=== PATIENT | male | born 1975 | race Caucasian/White ===

== ENCOUNTER → 2020-03-27 10:32 | Outpatient (CLI) | payer OTHER, SELFPAY ==
[2020-03-28 11:30] LABS: Covid-19 Nasal PCR Sendout P&C NEGATIVE
== END ==
PROVIDERS: PCP Internal Medicine Adolescent Medicine; Visit Provider Internal Medicine Adolescent Medicine
DX: Z03.818 Encounter for observation for suspected exposure to other biological agents ruled out (principal)
CPT/HCPCS: U0004

== ENCOUNTER → 2020-04-08 16:10 | Outpatient (CLI) | payer OTHER, SELFPAY ==
[2020-04-10 11:07] LABS: Covid-19 Nasal PCR Sendout P&C POSITIVE
== END ==
PROVIDERS: PCP Nurse Practitioner Family; Visit Provider Nurse Practitioner Family
DX: Z20.822 Contact with and (suspected) exposure to COVID-19 (principal); U07.1 COVID-19
CPT/HCPCS: U0004

== ENCOUNTER → 2020-12-18 09:14 | Outpatient (CLI) | payer OTHER, SELFPAY | PROVIDERS: PCP Internal Medicine Adolescent Medicine; Visit Provider Nurse Practitioner | DX: Z20.822 Contact with and (suspected) exposure to COVID-19 (principal) | CPT/HCPCS: C9803; U0003; U0005 ==

== ENCOUNTER → 2021-01-16 12:45 | Outpatient (CLI) | payer OTHER, SELFPAY | PROVIDERS: PCP Internal Medicine Adolescent Medicine; Visit Provider Nurse Practitioner | DX: Z20.822 Contact with and (suspected) exposure to COVID-19 (principal) | CPT/HCPCS: C9803; U0003; U0005 ==

== ENCOUNTER 2022-03-07 12:40 | Emergency (ER) | payer OTHER, SELFPAY ==
[2022-03-07 14:10] VITALS: BP 131/88; PULSE 91; RESP 18; TEMP 36.8; O2SAT 99; BMI 30.8
[2022-03-07 14:24] LABS: UTC Strep Screen (Rapid) Positive (Negative)
--- NOTE | 2022-03-07 14:44 | EXP.UTC ---
Discharge Plan Disposition Patient Disposition: Home, Self-Care Condition: Good Prescriptions Prescriptions: New azithromycin [azithromycin] 250 mg tablet 250 mg PO DIRECTED Qty: 6 0RF Rx Instructions: Take two (2) tablets on day #1, then one (1) tablet day #2 thru #5 No Action ibuprofen 800 MG tablet 800 mg PO Q8HP PRN (Reason: Moderate Pain) Qty: 21 0RF methocarbamol 500 MG tablet 500 mg PO TID Qty: 21 0RF prednisone 20 MG tablet 20 mg PO BID Qty: 10 0RF pnenvmobkzgueex-aozyksney-MP 473 ML syrup 5 - 10 ml PO Q4HP PRN (Reason: Cough) 10 Days Qty: 240 0RF Referrals Follow up/Referrals: Milan Corado MD [Primary Care Provider] - See instructions Activity Restrictions/Add. Instructions Additional Instructions/Restrictions: Start antibiotics today be sure to take it as ordered with the full length of time although you should start feeling better in 24-48 hours. Change toothbrush and toothpaste 24-48 hours after starting antibiotics Tylenol or Motrin as needed for fever or pain Encourage fluids, water, Gatorade, Powerade, try cold fluids, popsicles, ice cream will make it feel better You are contagious for 24 hours. Avoid kissing anyone, no eating or drinking after anyone. You are contagious. Follow-up the ER for new or worsening symptoms or no noticeable improvement over the next 24-48 hours. Follow-up with PCP this week. Clinical Impressions Clinical Impression: Strep sore throat Instructions Patient Instructions: DI for Strep Throat [facility] [place] HPI General Stated complaint: fever, sore throat, cough, strep exposure Mode of Arrival: Ambulatory Source of Information: Patient Limitations: No Limitations Time Seen by Provider: 03/07/22 14:44 Description of Symptoms (Recalled from Triage Doc. by RN): PATIENT C/O SORE THROAT SINCE YESTERDAY. EXPOSED TO STREP HEENT Symptoms (Recalled from RN notes): Yes Resp Symptoms (Recalled from RN notes): No Skin Symptoms (Recalled from RN notes): No MS Symptoms (Recalled from RN notes): No Functional Status (Recalled from RN notes): WNL History of Present Illness Provider Complaint: 46 yr old male presents for sore throat. son has strep Related Data Previous Rx's Medication Instructions Recorded ibuprofen 800 mg tablet 800 mg PO Q8HP PRN Moderate Pain 02/12/18 #21 tabs methocarbamol 500 mg tablet 500 mg PO TID #21 tabs 02/12/18 txcayzabqutbtps-hbmreeyubcwhepq-XC 5 - 10 ml PO Q4HP PRN Cough 10 03/17/19 2 mg-30 mg-10 mg/5 mL oral syrup days ##240 prednisone 20 mg tablet 20 mg PO BID #10 tabs 03/17/19 azithromycin 250 mg tablet 250 mg PO DIRECTED #6 tabs 03/07/22 Allergies Allergy/AdvReac Type Severity Reaction Status Date / Time No Known Allergies Allergy Unverified 03/15/17 14:31 Worker's Comp Is this a Worker's Comp case?: No [facility] Disclaimer: The information contained in this section may have been updated after the patient was seen, as this information can be updated by other users. Medical History , [employer]) No significant past medical history Social History , [employer]) Smoking Status: Never smoker alcohol intake: never current occupational status: other Travel in the last 8 weeks: None ROS Obtained: Yes All systems reviewed & no additional complaints except as documented Constitutional Constitutional: Reports system reviewed and no additional complaints, except as documented and Reports as per HPI Eyes Eyes: Reports system reviewed and no additional complaints, except as documented ENT Ears, Nose, Mouth, and Throat: Reports system reviewed and no additional complaints, except as documented and Reports sore throat Cardiovascular Cardiovascular: Reports system reviewed and no additional complaints, except as documented Respiratory Respiratory: Reports syste
[2022-03-07 15:05] VITALS: BP 131/88; PULSE 91; RESP 18; TEMP 36.8; O2SAT 99
== END 2022-03-07 15:10 | disposition home or self-care (01) ==
PROVIDERS: Emergency Provider Nurse Practitioner Family; PCP Internal Medicine Adolescent Medicine
DX: J02.0 Streptococcal pharyngitis (principal); B95.0 Streptococcus, group A, as the cause of diseases classified elsewhere; R50.9 Fever, unspecified; R05.9 Cough, unspecified; Z79.52 Long term (current) use of systemic steroids; Z79.899 Other long term (current) drug therapy
CPT/HCPCS: 87880; 99213; G0463

== ENCOUNTER 2024-03-17 09:07 | Emergency (ER) | payer OTHER, SELFPAY ==
--- NOTE | 2024-03-17 09:15 | ECG_ITS ---
APPROVED REPORT Exam: Resting ECG HR:125 bpm ECG Measurements Heart Rate 125 AXES QRSd 84 QRS 15 QT 273 T 29 QTc 347 Conclusion ATRIAL FIBRILLATION WITH RAPID VENTRICULAR RESPONSE ABNORMAL RHYTHM ECG Electronically signed by : AYAKA CRENSHAW, 03/17/2024 15:25:09
[2024-03-17 09:16] VITALS: BP 127/82; PULSE 72; RESP 18; TEMP 36.6; O2SAT 96; BMI 29.9
--- NOTE | 2024-03-17 09:28 | XR_ITS ---
PROCEDURE INFORMATION: Exam: XR Chest Exam date and time: 03/17/2024 9:52 AM Age: 48 years old Clinical indication: Tachypnea; Additional info: Rapid hr TECHNIQUE: Imaging protocol: Radiologic exam of the chest. Views: 1 view. COMPARISON: CR CXR2 XR chest AP 02/12/2018 5:00 PM FINDINGS: Lungs: Unremarkable. No consolidation. Resolution of the left basilar opacity Pleural spaces: Unremarkable. No pleural effusion. No pneumothorax. Heart/Mediastinum: Unremarkable. No cardiomegaly. Bones/joints: Unremarkable. IMPRESSION: No acute findings.
--- NOTE | 2024-03-17 09:30 | HMH.EDGENADL ---
Discharge Plan Disposition Patient Disposition: Home, Self-Care Prescriptions Prescriptions: New diltiazem HCl 180 mg capsule,extended release 24hr 180 mg PO DAILY Qty: 2 0RF No Action meloxicam 15 mg tablet 15 mg PO DAILY Patient Comments: TAKE 1 TABLET BY MOUTH ONCE DAILY Referrals Follow up/Referrals: Milan Corado MD [Primary Care Provider] - See instructions Activity Restrictions/Add. Instructions Additional Instructions/Restrictions: At this time it was felt you are safe to be discharged home. If new or worsening symptoms please do not hesitate to return the emergency department. Tomorrow please take 20 mg of your Eliquis and 180 mg diltiazem. Please present to cardiology clinic Tuesday and told him Dr. De Los Santos wanted to evaluated that morning. Clinical Impressions Clinical Impression: Atrial fibrillation with rapid ventricular response Print Language Print Language: French Discharge ED Provider: Martín Morin General Adult HPI General Chief complaint: Arrhythmia/Palpitations Stated complaint: heart fluttering, high HR, Time Seen by Provider: 03/17/24 09:10 Mode of Arrival: Ambulatory Source of Information: Patient Limitations: No Limitations Description of Symptoms (Recalled from ER Triage Doc. by RN): pt states that during rest apple watch notified increased heart rate all through the night, pt states that he can feel the increased heart rate, no hx, no home meds no chest pains or pressure. History of Present Illness HPI narrative: Patient is a 48-year-old male with no chronic comorbidities who presents emergency department for evaluation of heart fluttering. Onset was acute, occurring throughout the middle of the night. His watch was showing his heart rate anywhere between 160 and 70 bpm ultimately he presents here for continued evaluation. Patient denies chest pain, he has never had anything similar to this happen before. No other acute complaints at this time. Related Data Home Medications ?Medication ?Instructions ?Recorded ?Confirmed meloxicam 15 mg tablet 15 mg PO DAILY 03/17/24 03/17/24 Previous Rx's ?Medication ?Instructions ?Recorded diltiazem HCl 180 mg 180 mg PO DAILY atrial 03/17/24 capsule,extended release 24 hr fibrillation #2 caps Allergies Allergy/AdvReac Type Severity Reaction Status Date / Time No Known Allergies Allergy Unverified 03/15/17 14:31 [facility] Disclaimer: The information contained in this section may have been updated after the patient was seen, as this information can be updated by other users. Medical History , [employer]) No significant past medical history Social History (Updated 03/07/22 @ 15:01 by Joseph Jackson ([facility]), [employer]) Smoking Status: Never smoker alcohol intake: never current occupational status: other Travel in the last 8 weeks: None Have you lived/traveled outside [place] in past 30 days?: No Contact w/someone who lives/traveled outside US past 30 days?: No Exposure to someone with infectious disease in past 14 days?: No Do you have a fever (greater than 100.4 F or 38 C)?: No Have you tested positive for COVID-19: No Exposed to someone with COVID-19 in past 14 days?: No Do you have a sore throat?: No Do you have a cough?: No Do you have any weakness?: No Do you have any diarrhea?: No Are you experiencing any unusual bleeding?: No Do you have any muscle aches/pain?: No Do you have any abdominal pain?: No Are you experiencing loss of taste or smell?: No Other Medical History Have you received the Flu Vaccine for this season: Yes ROS Obtained: Yes Systems reviewed as appropriate & no additional complaints except as documented Physical Exam General General appearance: alert and in no apparent distress Head Head exam: atraumatic and normocephalic Eye Eye exam: Present PERRL ENT ENT exam: Present mucous membranes moist Neck Neck exam: Present normal inspection Chest Chest inspection: Present normal inspection and symmetric chest wall rise Respiratory Respiratory exam: Present normal lung sounds bilaterally; Absent respiratory distress Cardiovascular Cardiovascular exam: Present tachycardia and irregular rhythm Abdominal Exam Abdominal exam: Present soft; Absent tenderness Extremities Exam Extremities exam: Present normal inspection Neurological Exam Neurological exam: Present alert Psychiatric Psychiatric exam: Present normal affect Skin Skin exam: Present warm and dry Medical Decision Making Medical Records Screening: Per USPSTF and CDC recommendations, given the prevalence of disease in our region, it is our hospital?s policy to screen for HIV and viral Hepatitis for all patients aged 18 and over and those with ongoing risk factors. Brain Inquiry Pt receiving controlled substance: No Vital Signs: 03/17/24 09:16 03/17/24 09:46 Temperature 97.8 F Temperature Source Oral Pulse Rate 79 Pulse Rate [Right Radial] 72 Respiratory Rate 18 14 Blood Pressure 123/86 Blood Pressure [Right Arm] 127/82 Blood Pressure Mean [Right Arm] 97 02 Sat by Pulse Oximetry 96 97 Oxygen Delivery Method Room Air Lab Data Lab Results 03/17/24 09:35: WBC 6.4, RBC 5.29, Hgb 16.1, Hct 46.7, MCV 88.3, MCH 30.4, MCHC 34.5, RDW 12.7, Plt Count 213, MPV 8.8, Neut % (Auto) 55.8, Lymph % (Auto) 33.2, [place] % (Auto) 8.2, Eos % (Auto) 2.0, Baso % (Auto) 0.6, Neut # (Auto) 3.6, Lymph # (Auto) 2.1, [place] # (Auto) 0.5, Eos # (Auto) 0.1, Baso # (Auto) 0.0, D-Dimer 0.59 H, Sodium 140, Potassium 3.7, Chloride 108 H, Carbon Dioxide 29, Anion Gap 6.7, BUN 16, Creatinine 0.90, Estimated Creat Clear 156, Estimated GFR 90, Est GFR ( Amer) 109, Glucose 100, Calcium 8.9, Magnesium 1.8, Total Bilirubin 0.9, AST 77 H, ALT 40, Alkaline Phosphatase 57, NT-Pro-B Natriuret Pep 378 H, Total Protein 6.7, Albumin 4.0, Globulin 2.7, Albumin/Globulin Ratio 1.5, TSH 1.77, Free T4 1.11 03/17/24 09:35 03/17/24 09:35 Orders (Tests/Meds): ED MEDICATIONS Generic Name Dose Route Start Last Admin Trade Name Freq PRN Reason Stop Dose Admin Diltiazem HCl 100 mg/ Sodium 100 mls @ 5 mls/hr 03/17/24 09:45 03/17/24 10:32 Chloride IV 04/16/24 09:44 0 mg/hr .Q20H BLAISE 0 mls/hr Titration Protocol 5 MG/HR Discontinued Medications Generic Name Dose Route Start Last Admin Trade Name Freq PRN Reason Stop Dose Admin Aspirin 324 mg 03/17/24 09:28 03/17/24 09:47 Aspirin 81mg Chewable Tablet PO 03/17/24 09:29 324 mg ONCE ONE Administration Diltiazem HCl 20 mg 03/17/24 09:28 03/17/24 09:45 Diltiazem 25mg/5ml Vial IV 03/17/24 09:29 20 mg ONCE ONE Administration Diltiazem HCl 180 mg 03/17/24 10:27 03/17/24 10:36 Diltiazem Hcl 180mg Cap.Er.24h PO 03/17/24 10:28 180 mg DAILY ONE Administration Rivaroxaban 20 mg 03/17/24 10:27 03/17/24 10:36 Rivaroxaban 10mg Tablet PO 03/17/24 10:28 20 mg ONCE ONE Administration ORDERS Category Date Time Status CXR --portable [XR chest portable] Stat Exams 03/17/24 09:28 Completed POCUS Point of Care (ER Only) Stat Exams 03/17/24 09:30 Ordered BNP [NT Pro Brain Natriuretic Pep.] Stat Lab 03/17/24 09:35 Completed CBC w/Auto Diff [Complete Blood Count Auto Diff] Stat Lab 03/17/24 09:35 Completed CMP [Comprehensive Metabolic Panel] Stat Lab 03/17/24 09:35 Completed D-Dimer Stat Lab 03/17/24 09:35 Completed Free T4 (Free Thyroxine) Stat Lab 03/17/24 09:35 Completed HIV (1&2) Antibody Rapid Stat Lab 03/17/24 09:35 Received Hep C Ab with Reflex to RNA Stat Lab 03/17/24 09:35 Received MG [Magnesium] Stat Lab 03/17/24 09:35 Completed TSH [Thyroid Stimulating Hormone] Stat Lab 03/17/24 09:35 Completed ECG Data Tracing #1: Independently interpreted by me rate is 125 rhythm is irregular axis is normal, no ST elevation in anatomical contiguous leads, QTc 347 Medical Decision Narrative: In summary patient is a 48-year-old male past medical history described above who presents emergency department for evaluation of palpitations. Patient is hemodynamically stable nontoxic-appearing upon arrival, afebrile, tachycardic heart between 120 140 bpm. EKG obtained at bedside shows atrial fibrillation with rapid ventricular response. Differential diagnosis includes primary metabolic abnormality, endocrine abnormality, primary cardiac abnormality, among others. Workup be conducted with hematologic labs, chest x-ray, EKG, troponin, D-dimer. Initial inventions include push dose diltiazem followed by diltiazem drip. Aspirin will be administered at bedside. Initial workup reviewed by me, hematologic labs are nonactionable, no leukocytosis or anemia, pulmonary embolism excluded with years criteria, no concern for aortic dissection based on history given that he does not have chest pain no critical electrolyte abnormality thyroid studies are normal. Upon repeat evaluation patient had robust response to IV diltiazem the case was discussed with cardiology Dr. De Los Santos and given that he is well-appearing will be transition to oral extended release diltiazem and started on Eliquis in the ER. The patient was placed in observation status at 10:30 AM. Medical necessity for observational status with assessment of cardioactive medication effect. The patient was provided serial reevaluations and cardiac monitoring while awaiting results. Upon repeat evaluation patient persistently had sinus rhythm in the 60s to 80s. Given this I feel that patient is appropriate for outpatient management at this time and patient will be discharged with Xarelto take-home pack and diltiazem and will follow-up with cardiology on Tuesday morning. Total time in observation was 53 minutes. Critical Care Critical Care Time Critical Care Time: Yes Attestation: On 03/17/24, the high probability of a clinically significant, sudden or life threatening deterioration of the following system(s) required my full and direct attention, intervention and personal management. The time I documented below is in addition to time spent performing reported procedures but includes the following listed in this critical care notation. Total Time Total Critical Care Time: 45
--- NOTE | 2024-03-17 09:43 | HMH.PHAINT1 ---
Pharmacy Intervention Comments: MEDICATION RECONCILIATION COMPLETED ON PATIENT USING EXTERNAL FILL HISTORY FROM PHARMACY. -RENAN QUINONEZ, MANJULAD
[2024-03-17] MEDS: dilTIAZem 25MG/5ML VIAL 20 MG IV (09:45)
[2024-03-17 09:46] VITALS: BP 123/86; PULSE 79; RESP 14; O2SAT 97
[2024-03-17] MEDS: dilTIAZem HCL 100 MG in 0.9 % SODIUM CHLORIDE 100 ML IV (09:47)
[2024-03-17] MEDS: ASPIRIN 81MG CHEWABLE TABLET 324 MG PO (09:47)
[2024-03-17 09:54] LABS: Hematocrit 46.7 % (42.0-52.0); Hemoglobin 16.1 g/dL (14.1-18.0); Mean Corpuscular HGB Conc 34.5 g/dL (31.8-35.4); Mean Corpuscular Hemoglobin 30.4 pg (27.0-31.2); Mean Corpuscular Volume 88.3 fl (80-94); Red Blood Count 5.29 M/mm3 (4.60-6.20); White Blood Count 6.4 K/mm3 (4.8-10.8)
[2024-03-17 09:55] LABS: Basophils % 0.6 % (0.1-2.0); Eosinophils # 0.1 K/mm3 (0.0-0.4); Lymphocytes # 2.1 K/mm3 (0.7-4.5); Lymphocytes % 33.2 % (10-50); Mean Platelet Volume 8.8 fl (7.4-10.4); Monocytes # 0.5 K/mm3 (0.1-1.0); Monocytes % 8.2 % (1.7-9.3); Neutrophils # 3.6 K/mm3 (1.8-7.8); Neutrophils % 55.8 % (37.0-80.0); Platelet Count 213 K/mm3 (142-424); Red Cell Distribution Width 12.7 % (11.5-17.5)
[2024-03-17 10:04] LABS: Potassium 3.7 mmoL/L (3.5-5.1)
[2024-03-17 10:06] LABS: Alanine Aminotransferase 40 U/L (12-78); Albumin/Globulin Ratio 1.5 (1.1-1.8); Alkaline Phosphatase 57 U/L (38-126); Anion Gap 6.7 mEq/L (5-15); Aspartate Amino Transferase 77 U/L (17-59); Bilirubin,Total 0.9 mg/dl (0.2-1.3); Blood Urea Nitrogen 16 mg/dl (9-20); Calcium 8.9 mg/dl (8.4-10.2); Carbon Dioxide 29 mmol/L (22.0-30.0); Chloride 108 mmol/L (98-107); Creatinine Clearance Estimated 156 mL/min (50-200); Estimated Glomerular Filt Rate 90 ml/min (>60); GFR (African American) 109 ML/MIN (>60); Globulin 2.7 g/dL (1.3-3.2); Glucose 100 mg/dl (74-100); Magnesium 1.8 mg/dl (1.6-2.3); Sodium 140 mmol/L (136-145); Total Protein,Serum 6.7 g/dl (6.3-8.2)
[2024-03-17 10:11] LABS: D-Dimer 0.59 ug/mL (0.0-0.5)
[2024-03-17 10:34] LABS: Free T4 (Free Thyroxine) 1.11 ng/dl (0.78-2.19)
[2024-03-17] MEDS: dilTIAZem HCL 180MG CAP.ER.24H 180 MG PO (10:36)
[2024-03-17] MEDS: RIVAROXABAN 10MG TABLET 20 MG PO (10:36)
[2024-03-17 10:39] LABS: Thyroid Stimulating Hormone 1.77 uIU/mL (0.465-4.68)
[2024-03-17 10:50] LABS: NT Pro Brain Natriuretic Pep. 378 pg/mL (0-125)
[2024-03-17] MEDS: XARELTO 15MG THP 1 PACKET PAK PO (11:31)
[2024-03-17 11:38] VITALS: BP 127/94; PULSE 74; RESP 16; TEMP 36.6
[2024-03-17 13:48] LABS: HIV Combo NEGATIVE (Negative)
[2024-03-19 10:08] LABS: HCV Ab Non Reactive (Non Reactive)
== END 2024-03-17 11:41 | disposition home or self-care (01) ==
PROVIDERS: Emergency Provider Emergency Medicine; PCP Internal Medicine Adolescent Medicine
DX: I48.91 Unspecified atrial fibrillation (principal); R00.2 Palpitations
CPT/HCPCS: 71045; 80050; 80053; 83735; 83880; 84439; 84443; 85025; 85378; 86803; 87389; 93005; 99291

== ENCOUNTER 2024-03-19 11:27 | Outpatient (CLI) | payer OTHER, SELFPAY | END 2024-03-19 23:59 | disposition home or self-care (01) | LOC: RT 11:29 | PROVIDERS: PCP Internal Medicine Adolescent Medicine; Visit Provider Physician Assistant | DX: I48.91 Unspecified atrial fibrillation (principal) | CPT/HCPCS: 93270 ==

== ENCOUNTER 2024-04-16 01:24 | Emergency (ER) | payer OTHER, SELFPAY ==
[2024-04-16] VITALS (9 sets, daily range): BP systolic 122–180; BP diastolic 82–101; PULSE 62–122; RESP 14–24; TEMP 36.8–37.1; O2SAT 95–100; BMI 29.3
--- NOTE | 2024-04-16 01:43 | CT_ITS ---
PROCEDURE INFORMATION: Exam: CTA Chest With Contrast Exam date and time: 04/16/2024 3:30 AM Age: 48 years old Clinical indication: Shortness of breath; Additional info: SOA tachy palpitations TECHNIQUE: Imaging protocol: Computed tomographic angiography of the chest with contrast. Exam focused on the arteries. 3D rendering (Not supervised by radiologist): MIP and/or 3D reconstructed images were created by the technologist. Radiation optimization: All CT scans at this facility use at least one of these dose optimization techniques: automated exposure control; mA and/or kV adjustment per patient size (includes targeted exams where dose is matched to clinical indication); or iterative reconstruction. Contrast material: ISOVUE; Contrast volume: 70 ml; Contrast route: INTRAVENOUS (IV); COMPARISON: CR XR CHEST PORTABLE 03/17/2024 9:52 AM FINDINGS: Pulmonary arteries: Normal. No pulmonary emboli. Aorta: Unremarkable. No aortic aneurysm. No aortic dissection. Lungs: Mild ground-glass opacities bilaterally. Azygos fissure. Pleural spaces: Unremarkable. No pneumothorax. No pleural effusion. Heart: Unremarkable. No cardiomegaly. No pericardial effusion. Lymph nodes: Calcified right hilar and mediastinal lymph nodes. Bones/joints: Unremarkable. No acute fracture. Soft tissues: Unremarkable. IMPRESSION: No pulmonary emboli. Mild bilateral ground-glass opacities, suspicious for pulmonary edema. Evidence of prior granulomatous exposure.
[2024-04-16 01:59] LABS: Hematocrit 47.2 % (42.0-52.0); Hemoglobin 16.4 g/dL (14.1-18.0); White Blood Count 8.8 K/mm3 (4.8-10.8)
[2024-04-16 02:00] LABS: Basophils # 0.1 K/mm3 (0-0.2); Basophils % 0.6 % (0.1-2.0); Eosinophils # 0.2 K/mm3 (0.0-0.4); Eosinophils % 2.6 % (0.1-12.0); Lymphocytes # 4.3 K/mm3 (0.7-4.5); Lymphocytes % 49.1 % (10-50); Mean Corpuscular HGB Conc 34.7 g/dL (31.8-35.4); Mean Corpuscular Hemoglobin 30.9 pg (27.0-31.2); Mean Corpuscular Volume 89.1 fl (80-94); Mean Platelet Volume 9.2 fl (7.4-10.4); Monocytes # 0.7 K/mm3 (0.1-1.0); Monocytes % 8.1 % (1.7-9.3); Neutrophils # 3.5 K/mm3 (1.8-7.8); Neutrophils % 39.4 % (37.0-80.0); Platelet Count 222 K/mm3 (142-424); Red Cell Distribution Width 12.4 % (11.5-17.5)
--- NOTE | 2024-04-16 02:04 | PC.NURSE ---
Patient states he already took aspirin at home
[2024-04-16 02:05] LABS: NT Pro Brain Natriuretic Pep. < 20.0 pg/mL (0-125)
[2024-04-16 02:06] LABS: Albumin Level 4.4 g/dl (3.5-5.0); Chloride 102 mmol/L (98-107); Potassium 3.7 mmoL/L (3.5-5.1); Sodium 141 mmol/L (136-145)
[2024-04-16 02:09] LABS: Alanine Aminotransferase 28 U/L (12-78); Albumin/Globulin Ratio 1.7 (1.1-1.8); Alkaline Phosphatase 68 U/L (38-126); Anion Gap 14.7 mEq/L (5-15); Aspartate Amino Transferase 32 U/L (17-59); Bilirubin,Total 0.3 mg/dl (0.2-1.3); Blood Urea Nitrogen 18 mg/dl (9-20); Calcium 9.6 mg/dl (8.4-10.2); Carbon Dioxide 28 mmol/L (22.0-30.0); Estimated Glomerular Filt Rate 72 ml/min (>60); GFR (African American) 87 ML/MIN (>60); Globulin 2.6 g/dL (1.3-3.2); Glucose 107 mg/dl (74-100)
[2024-04-16 02:10] LABS: Troponin I < 0.01 ng/ml (0.00-0.034)
[2024-04-16 02:11] LABS: Activated Partial Thrombo Time 29.6 seconds (22.8-30.6); INR 0.94 (0.9-1.1); Prothrombin Time 10.4 seconds (10.1-12.5)
[2024-04-16 02:24] LABS: Coronavirus 19, PCR Not Detected (NotDetected); Influenza A, PCR Not Detected (NotDetected); Influenza B, PCR Not Detected (NotDetected)
--- NOTE | 2024-04-16 03:07 | PC.NURSE ---
rounded on patient, no needs at this time. Patient reports no pain at this time.
[2024-04-16] MEDS: 0.9 % SODIUM CHLORIDE 50 ML VIAL IV (03:36)
[2024-04-16] MEDS: SODIUM CHLORIDE 0.9% 10ML SYR (RAD ONLY) 10 ML IV (03:36)
[2024-04-16] MEDS: IOPAMIDOL-370 (76%);100ML BOTTLE 70 ML IV (03:36)
[2024-04-16 04:07] LABS: HIV Combo NEGATIVE (Negative)
[2024-04-16 04:14] LABS: Hepatitis C Ab Qual. W/ RFX NEGATIVE (Negative)
[2024-04-16 05:12] LABS: Troponin I < 0.01 ng/ml (0.00-0.034)
--- NOTE | 2024-04-16 05:37 | [facility].EDCP ---
Discharge Plan Disposition Patient Disposition: Home, Self-Care Condition: Good Prescriptions Prescriptions: No Action omeprazole 20 mg capsule,delayed release(DR/EC) 20 mg PO DAILY Patient Comments: TAKE 1 CAPSULE BY MOUTH EVERY DAY diltiazem HCl 180 mg capsule,extended release 24hr 180 mg PO DAILY Qty: 30 5RF Xarelto 20 mg tablet 20 mg PO DAILY Qty: 30 2RF Rx Instructions: must administer with evening meal meloxicam 15 mg tablet 15 mg PO DAILY PRN Patient Comments: TAKE 1 TABLET BY MOUTH ONCE DAILY Referrals Follow up/Referrals: Milan Corado MD [Primary Care Provider] - See instructions Activity Restrictions/Add. Instructions Additional Instructions/Restrictions: You were evaluated in the ER and are appropriate for discharge at this time. Continue taking your home medications as prescribed. Drink plenty of water. Follow-up with cardiology as scheduled. Return to the ER with new, worsening, or otherwise concerning symptoms. Clinical Impressions Clinical Impression: Palpitations, Atrial fibrillation Print Language Print Language: Welsh Discharge ED Provider: Nickie Brown General Chief Complaint: Chest Pain Stated Complaint: chest pain Time Seen by Provider: 04/16/24 01:42 Mode of Arrival: Ambulatory Source of Information: Patient Limitations: No Limitations Description of Symptoms (Recalled from ER Triage Doc. by RN): Pt presents to ED for chest palpitations. Pt states Dr. Mikel granda w/ [facility]. Pt states his Apple Watch woke him up. Pt states he took ASA prior to arrival. Pt states he has no pain at this time. History of Present Illness HPI narrative: 48-year-old male with known atrial fibrillation presents to the ER for palpitations. Patient reports he is taking his Xarelto and diltiazem as prescribed. He states he felt an episode of palpitations that started around midnight. Patient has been previously instructed to take an extra diltiazem if this happens which he did. He states he felt like he could not catch his breath so he came to the ER for evaluation. Patient also took aspirin prior to arrival. He denies any chest pain or pressure, no numbness, tingling, or weakness. Patient denies any recent illness, no cough, congestion, fever, vomiting, diarrhea, abdominal pain, dizziness, lightheadedness, or other associated symptoms. He states he has not missed any doses of medications, not had any recent medication changes, no alcohol or illicit drug use. Also denies tobacco use. Related Data Home Medications ?Medication ?Instructions ?Recorded ?Confirmed meloxicam 15 mg tablet 15 mg PO DAILY PRN 03/26/24 03/26/24 omeprazole 20 mg capsule,delayed 20 mg PO DAILY 03/26/24 03/26/24 release Previous Rx's ?Medication ?Instructions ?Recorded diltiazem HCl 180 mg 180 mg PO DAILY atrial 03/19/24 capsule,extended release 24 hr fibrillation #30 caps rivaroxaban 20 mg tablet (Xarelto) 20 mg PO DAILY #30 tabs 03/19/24 Allergies Allergy/AdvReac Type Severity Reaction Status Date / Time No Known Allergies Allergy Unverified 03/26/24 08:54 [facility] Disclaimer: The information contained in this section may have been updated after the patient was seen, as this information can be updated by other users. Medical History (Updated 04/16/24 @ 05:30 by Nickie Brown MD) Atrial fibrillation with rapid ventricular response Paroxysmal atrial fibrillation Abnormal electrocardiogram [ECG] [EKG] Family history of coronary artery disease No significant past medical history Social History Smoking Status: Never smoker alcohol intake: never current occupational status: other Travel in the last 8 weeks: None Have you lived/traveled outside [place] in past 30 days?: No Contact w/someone who lives/traveled outside [place] past 30 days?: No Exposure to someone with infectious disease in past 14 days?: No Do you have a fever (greater than 100.4 F or 38 C)?: No Have you tested positive for COVID-19: No Exposed to someone with COVID-19 in past 14 days?: No Do you have a sore throat?: No Do you have a cough?: No Do you have any weakness?: No Do you have any diarrhea?: No Are you experiencing any unusual bleeding?: No Do you have any muscle aches/pain?: No Do you have any abdominal pain?: No Are you experiencing loss of taste or smell?: No Other Medical History Have you received the Flu Vaccine for this season: Yes ROS Obtained: Yes Systems reviewed as appropriate & no additional complaints except as documented Per HPI Physical Exam General General appearance: alert and in no apparent distress Head Head exam: atraumatic and normocephalic Eye Eye exam: Present PERRL and EOMI ENT ENT exam: Present mucous membranes moist Neck Neck exam: Present normal inspection and full ROM Chest Chest inspection: Present symmetric chest wall rise Respiratory Respiratory exam: Absent respiratory distress or stridor Cardiovascular Cardiovascular exam: Present tachycardia and irregular rhythm Abdominal Exam Abdominal exam: Present soft; Absent distention or tenderness Extremities Exam Extremities exam: Present full ROM and other (2+ pulses throughout); Absent edema Neurological Exam Neurological exam: Present alert and oriented X3; Absent motor sensory deficit Psychiatric Psychiatric exam: Present normal affect and normal mood Skin Skin exam: Present warm and dry HEART Score HEART Score HEART Score assessment performed?: Yes History (anamnesis): Slightly suspicious ECG: Normal Age: 45-65 years Risk factors: 1-2 risk factors Troponin: </= normal limit HEART Score: 2 Critical Care Critical Care Time Critical Care Time: No Medical Decision Making Medical Records Medical records reviewed: Yes I reviewed the patient's medical records. MR Comment: Last office visit with cardiology on 03/26/2024 was reviewed, plan for GXT, echo, return to clinic in 3 weeks. Brain Inquiry Pt receiving controlled substance: No Vital Signs Vital Signs: 04/16/24 01:24 04/16/24 02:13 04/16/24 02:15 Temperature 98.2 F Temperature Source Oral Pulse Rate 102 H 110 H Pulse Rate [Right Brachial] 122 H Respiratory Rate 17 17 Blood Pressure Blood Pressure [Right Arm] 180/101 H Blood Pressure Mean [Right Arm] 127 Blood Pressure Source Blood Pressure Source [Right Arm] Automatic Cuff Blood Pressure Position Blood Pressure Position [Right Arm] Supine 02 Sat by Pulse Oximetry 97 98 Oxygen Delivery Method Room Air 04/16/24 02:15 04/16/24 02:30 04/16/24 03:00 Temperature Temperature Source Pulse Rate 100 H 80 68 Pulse Rate [Right Brachial] Respiratory Rate 24 16 22 Blood Pressure 146/97 H 150/101 H Blood Pressure [Right Arm] Blood Pressure Mean [Right Arm] Blood Pressure Source Blood Pressure Source [Right Arm] Blood Pressure Position Blood Pressure Position [Right Arm] 02 Sat by Pulse Oximetry 95 96 96 Oxygen Delivery Method 04/16/24 03:15 04/16/24 03:34 04/16/24 03:45 Temperature Temperature Source Pulse Rate 62 85 94 H Pulse Rate [Right Brachial] Respiratory Rate 21 14 Blood Pressure Blood Pressure [Right Arm] Blood Pressure Mean [Right Arm] Blood Pressure Source Blood Pressure Source [Right Arm] Blood Pressure Position Blood Pressure Position [Right Arm] 02 Sat by Pulse Oximetry 96 100 95 Oxygen Delivery Method 04/16/24 05:31 Temperature 98.7 F Temperature Source Oral Pulse Rate 81 Pulse Rate [Right Brachial] Respiratory Rate 20 Blood Pressure 122/82 Blood Pressure [Right Arm] Blood Pressure Mean [Right Arm] Blood Pressure Source Automatic Cuff Blood Pressure Source [Right Arm] Blood Pressure Position Supine Blood Pressure Position [Right Arm] 02 Sat by Pulse Oximetry Oxygen Delivery Method Room Air Lab Data Labs: Lab Results 04/16/24 01:25: WBC 8.8, RBC 5.30, Hgb 16.4, Hct 47.2, MCV 89.1, MCH 30.9, MCHC 34.7, RDW 12.4, Plt Count 222, MPV 9.2, Neut % (Auto) 39.4, Lymph % (Auto) 49.1, [place] % (Auto) 8.1, Eos % (Auto) 2.6, Baso % (Auto) 0.6, Neut # (Auto) 3.5, Lymph # (Auto) 4.3, [place] # (Auto) 0.7, Eos # (Auto) 0.2, Baso # (Auto) 0.1, PT 10.4, INR 0.94, APTT 29.6, Sodium 141, Potassium 3.7, Chloride 102, Carbon Dioxide 28, Anion Gap 14.7, BUN 18, Creatinine 1.10, Estimated GFR 72, Est GFR ( Amer) 87, Glucose 107 H, Calcium 9.6, Total Bilirubin 0.3, AST 32, ALT 28, Alkaline Phosphatase 68, Troponin I < 0.01, NT-Pro-B Natriuret Pep < 20.0, Total Protein 7.0, Albumin 4.4, Globulin 2.6, Albumin/Globulin Ratio 1.7, HCV Ab RAMON w/Rflx PCR Qn Negative, HIV Ag/Ab Combo Qual Negative 04/16/24 02:17: SARS-CoV-2 (PCR) Not detected, Influenza A Untype (PCR) Not detected, Influenza Type B (PCR) Not detected 04/16/24 04:32: Troponin I < 0.01 04/16/24 01:25 04/16/24 01:25 Response Orders (Tests/Meds): ED MEDICATIONS Generic Name Dose Route Start Last Admin Trade Name Freq PRN Reason Stop Dose Admin Nitroglycerin 0.4 mg 04/16/24 01:43 Nitroglycerin 0.4mg Sl Tablet SL 04/17/24 01:44 [id number] PRN Chest Pain Sodium Chloride 10 ml 04/16/24 03:35 04/16/24 03:36 Sodium Chloride 0.9% 10ml Syr (Rad Only) IV 05/16/24 03:34 10 ml NEEDED PRN Administration Maintain IV Site Discontinued Medications Generic Name Dose Route Start Last Admin Trade Name Freq PRN Reason Stop Dose Admin Aspirin 324 mg 04/16/24 01:43 04/16/24 02:04 Aspirin 81mg Chewable Tablet PO 04/16/24 01:44 Not Given ONCE ONE Aspirin 324 mg 04/16/24 01:59 04/16/24 02:04 Aspirin 81mg Chewable Tablet PO 04/16/24 02:00 Not Given ONCE ONE Iopamidol 70 ml 04/16/24 03:35 04/16/24 03:36 Iopamidol-370 (76%);100ml Bottle IV 04/16/24 03:36 70 ml ONCE ONE Administration Sodium Chloride 50 ml 04/16/24 03:35 04/16/24 03:36 0.9 % Sodium Chloride 50 Ml Vial IV 04/16/24 03:36 50 ml ONCE ONE Administration ORDERS Category Date Time Status CT angio chest PE protocol Stat Cat Scan 04/16/24 01:43 Completed Activated Partial Thrombo Time Stat Lab 04/16/24 01:25 Completed Complete Blood Count Auto Diff Stat Lab 04/16/24 01:25 Completed Comprehensive Metabolic Panel Stat Lab 04/16/24 01:25 Completed HIV Combo Stat Lab 04/16/24 01:25 Completed Hepatitis C Ab Qual. W/ RFX Stat Lab 04/16/24 01:25 Completed NT Pro Brain Natriuretic Pep. Stat Lab 04/16/24 01:25 Completed Prothrombin Time INR Stat Lab 04/16/24 01:25 Completed Rapid PCR Covid and Flu A/B Stat Lab 04/16/24 02:17 Completed Troponin I Q3H Lab 04/16/24 04:32 Completed Troponin I Q3H Lab 04/16/24 07:45 Ordered Troponin I Stat Lab 04/16/24 01:25 Completed MDM Narrative Medical Decision Narrative: In summary, this 48-year-old male with comorbidities described in the HPI presents to the emergency department today with palpitations. On initial evaluation patient is tachycardic with irregular rhythm, rate 100-110 during my exam, good peripheral perfusion with brisk capillary refill, 2+ pulses, no peripheral edema, lungs clear bilaterally, no respiratory distress, saturating well on room air, remainder of exam benign. Differential diagnosis includes but is not limited to ACS, PE, palpitations due to atrial fibrillation, RVR, electrolyte abnormality, dehydration, viral syndrome. Based on these concerns, I ordered serum labs, cardiac workup, CTA PE. ECG personally interpreted demonstrates atrial fibrillation, rate 110, normal axis, normal QTc, no STEMI. ECG similar to prior which I reviewed. In the ER patient's rate was controlled below 110 so he did not receive any medications since he had taken his home diltiazem prior to arrival. Labs personally reviewed demonstrate normal CBC and coags, CMP nonactionable, BNP undetectable less than 20, initial troponin less than 0.01, COVID, flu negative. CTA PE personally interpreted does not demonstrate pulmonary embolus. Patient has findings questionable for pulmonary edema however he has no peripheral edema, normal BNP. He does not have fever or clinical evidence of pneumonia, no leukocytosis. Will not take action on the opacities at this time. See radiology read for final interpretation. Patient informed of incidental findings. Patient was placed into ED observation at 0245 for serial troponins, continue cardiac monitoring. This was to preclude unnecessary admission and rule out evolving [place]. 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 He is resting comfortably, symptoms that brought him to the ER have resolved. Repeat troponin undetectably low less than 0.01. At this time patient is asymptomatic and appropriate for discharge. He and at bedside are reassured by workup. Patient was given instructions to continue home medications, he was informed of refills available for his diltiazem and I instructed him to pick them up. No medication changes made at this time. 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 Also instructed to follow-up with primary care doctor as well as gave him strict return precautions for the ER. They indicated understanding and the patient was discharged in stable condition.
== END 2024-04-16 05:40 | disposition home or self-care (01) ==
PROVIDERS: Emergency Provider Emergency Medicine; PCP Internal Medicine Adolescent Medicine
DX: I48.91 Unspecified atrial fibrillation (principal); R07.9 Chest pain, unspecified; R00.2 Palpitations; R06.02 Shortness of breath
CPT/HCPCS: 71275; 80053; 83880; 84484; 85025; 85610; 85730; 86803; 87389; 87636; 93005; 99285; Q9967